=== PATIENT | female | born 1990 | race African-American/Black ===

== ENCOUNTER 2016-08-07 11:42 | Emergency (ER) | payer OTHER ==
[2016-08-07 12:01] VITALS: BP 137/63; PULSE 65; TEMP 98.7; BMI 30.7
[2016-08-07] MEDS ORDERED: ONDANSETRON 4 MG/2 ML VIAL ONE (12:04)
[2016-08-07] MEDS ORDERED: KETOROLAC TROMETHAMINE 60 MG/2 ML VIAL IVPUSH ONE (12:34)
[2016-08-07] MEDS ORDERED: KETOROLAC TROMETHAMINE 60 MG/2 ML VIAL ONE (12:36)
[2016-08-07 12:40] LABS: BASOPHIL 0.2 % (0-2.0); MCH 16.6 pg (25.7-33.7); MCHC 30.5 g/dl (32.0-36.0); MEAN CELL VOLUME 54.3 fl (80-96); MEAN PLT VOLUME 9.7 fl (7.5-11.1); NEUTROPHILS 88.2 % (42.8-82.8); PLATELET COUNT 270 K/MM3 (134-434); RDW 20.8 % (11.6-15.6); WHITE BLOOD COUNT 11.2 K/mm3 (4.0-10.0)
--- NOTE | 2016-08-07 12:45 | PDOC ---
History of Present Illness - General Chief Complaint: Pain Stated Complaint: ABD PAIN Time Seen by Provider: 08/07/16 11:55 History Source: Patient Exam Limitations: No Limitations - History of Present Illness Travel History: No Initial Comments: 08/07/16 12:45 By ambulance to the emergency department writhing and very dynamic with her complaints of abdominal pain. Has 4 family members with her with concerns about her appearance and her pain. States has multiple year history of abdominal pain related to fibroids. States every month before her menstrual cycle she suffers from lower abdominal cramping, suprapubic cramping similar to this however today 's episode was much worse which rendered her unable to attend [employer]. When family returned home and found her in this discomfort and called ambulance for transport to emergency department Last evaluation in measurement stated she had fibroids the size of 14 week . Has 2 Clinical Secretary doctors, attends school in [place] and that physician has seen her on multiple occasions recently. She missed her appointment last week Patient did not know exact measurement. States her mother suffered from fibroids and had surgical excisions of same. Denies fever, but states felt chills at home. Has had nauseousness and some episodes of emesis this morning, was uncertain as to related to pain. Patient denies vaginal drainage or bleeding, denies any problems with bowels, denies any pain or burning with urine, any recent UTI. Has not been sexually active for 2 months and denies thoughts of . 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 Timing/Duration: reports: getting worse Quality: reports: moderate, severe, sharpness, stabbing Abdominal Pain Onset Location: reports: suprapubic Pain Radiation: reports: no radiation Past History - Travel Traveled outside of the country in the last 30 days: No Close contact w/someone who was outside of country & ill: No - Past Medical History Allergies/Adverse Reactions: Allergies Allergy/AdvReac Type Severity Reaction Status Date / Time No Known Allergies Allergy Verified 08/07/16 11:47 Home Medications: Ambulatory Orders Ibuprofen [Motrin -] 800 mg PO TID #30 tablet 04/13/15 Oxycodone HCl/Acetaminophen [Percocet 5-325 mg Tablet -] 1 - 2 tab PO Q4H PRN # 10 tablet MDD 4 08/07/16 Oxycodone HCl/Acetaminophen [Percocet 5-325 mg Tablet -] 1 - 2 tab PO Q4H PRN # 20 tablet MDD 4 08/07/16 GI Disorders: Yes (fibroids) - Psycho/Social/Smoking Cessation Hx Anxiety: No Suicidal Ideation: No Smoking History: Never smoked Have you smoked in the past 12 months: No Information on smoking cessation initiated: No Hx Alcohol Use: No Drug/Substance Use Hx: No Substance Use Type: None Abd/GI Specific PMHX - Complaint Specific PMHX Diverticulitis: No Gall Bladder Disease: No GERD: No Review of Systems - Review of Systems Able to Perform ROS?: Yes Is the patient limited Irish proficient: Yes Constitutional: Yes: Symptoms Reported, See HPI, Chills, Fever, Loss of Appetite , Malaise HEENTM: Yes: See HPI. No: Symptoms Reported Respiratory: Yes: See HPI. No: Symptoms reported, Cough ABD/GI: Yes: Symptoms Reported, Abdominal cramping (pelvic ) : Yes: See HPI, Other (currently menstrration). No: Symptoms Reported, Burning, Dysuria, Discharge Musculoskeletal: No: Symptoms Reported Integumentary: No: Symptoms Reported Neurological: Yes: See HPI. No: Symptoms reported Hematologic/Lymphatic: No: Symptoms Reported All Other Systems: Reviewed and Negative *Physical Exam - Vital Signs Last Vital Signs Temp Pulse Resp BP Pulse Ox 98.7 F 65 18 137/63 100 08/07/16 11:45 08/07/16 11:45 08/07/16 11:45 08/07/16 11:45 08/07/16 11:45 - Physical Exam General Appearance: Yes: Nourished ( Morbidly obese), Appropriately Dressed, Apparent Distress, Moderate Distress, Severe Distress (shaking legs, and moving) HEENT: positive: Normal ENT Inspection, TMs Normal, Pharynx Normal Neck: positive: Supple. negative: Tender, Lymphadenopathy (R), Lymphadenopathy (L) Respiratory/Chest: positive: Lungs Clear Gastrointestinal/Abdominal: positive: Soft (no rebound, tenderness, hepatosplenomegaly, and no masses palpated to deep palpation.), Decreased BS, Tenderness (suprapubic tenderness). negative: Tender, Pulsatile Mass, Guarding , Rebound Extremity: positive: Normal Capillary Refill, Normal Range of Motion Integumentary: positive: Dry, Warm, Pale Neurologic: positive: correctional lieutenant II-XII NML intact, Fully Oriented, Alert, Normal Mood/ Affect (patient is very dramatic, hyperventilating intermittently with exam, moving frequently and wiggling legs with exam,), Normal Response, Motor Strength 07/15 ED Treatment Course - LABORATORY CBC & Chemistry Diagram: 08/07/16 12:29 08/07/16 12:29 Progress Note - Progress Note Progress Note: Urgent with known fibroids here with severe abdominal pain, states is worse than her regular. Will obtain labs, urinalysis, and obtain ultrasound to evaluate fibroid Medical Decision Making - Medical Decision Making 08/07/16 14:56 Return from ultrasound, is resting more quietly although states pain has not completely resolved but is much improved after morphine administration. He is receiving IV fluid, discussed results of ultrasound that showed fibroids however not much change from one year ago. No obvious pathology or other free fluid in abdomen. Discussed need for follow-up *DC/Admit/Observation/Transfer Diagnosis at time of Disposition: Fibroids Qualifiers: Uterine leiomyoma location: unspecified location Qualified Code(s): D25.9 - Leiomyoma of uterus, unspecified Anemia Qualifiers: Anemia type: iron deficiency Iron deficiency anemia type: unspecified iron deficiency Qualified Code(s): D50.9 - Iron deficiency anemia, unspecified - Discharge Dispostion Disposition: HOME Condition at time of disposition: Stable Admit: No - Prescriptions Prescriptions: Oxycodone HCl/Acetaminophen [Percocet 5-325 mg Tablet -] 1 - 2 tab PO Q4H PRN # 20 tablet MDD 4 PRN Reason: Pain Oxycodone HCl/Acetaminophen [Percocet 5-325 mg Tablet -] 1 - 2 tab PO Q4H PRN # 10 tablet MDD 4 PRN Reason: Pain - Referrals Referrals: Pauly Louis MD [Primary Care Provider] - - Patient Instructions Printed Discharge Instructions: DI for Uterine Fibroids Additional Instructions: Rest, drink lots of fluids: Teas, water, soups Abida indigo, carbonated beverages for the bubbles May try peppermint teas Avoid heavy , spicy or fatty foods until symptoms have resolved Avoid contact with others until fevers and symptoms resolved Lots of handwashing and good hygiene Continue [id number] medications for symptomatic relief Tylenol or Motrin for fever and pain Percocet for severe pain, one or 2 tablets every 6 hours as needed, remembering will make dizzy and sleepy Followup with private physician/ SOAP DRIER TENDER doctor in one to 2 days , to discuss worsening pain and fibroid problem. May consider hematology and gastroenterology evaluation to reveal chronic anemia Return to emergency department for worsened symptoms, fevers, dehydration - Post Discharge Activity Work/School Note: Back to School
[2016-08-07 13:04] LABS: ANISOCYTOSIS 2+; HYPOCHROMIA 1+; MICROCYTOSIS 2+; PLATELET ESTIMATE ADEQUATE (NORMAL); POLYCHROMASIA FEW
[2016-08-07 13:05] LABS: TARGET CELLS FEW
[2016-08-07 13:06] LABS: ALBUMIN 3.8 g/dl (3.4-5.0); ANION GAP 12 (8-16); BILIRUBIN,TOTAL 0.4 mg/dL (0.2-1.0); CALCIUM 9.2 mg/dL (8.5-10.1); CO2 20 mmol/L (21-32); COCKROFT - GAULT 143.7095; CREATININE 0.8 mg/dL (0.55-1.02); GLUCOSE,RANDOM 91 mg/dL (74-106); SGOT/AST 20 U/L (15-37); SGPT/ALT 16 U/L (12-78); TOT PROT 7.8 g/dl (6.4-8.2)
[2016-08-07 13:06] LABS: URINE APPEARANCE CLEAR; URINE BILIRUBIN NEGATIVE (NEGATIVE); URINE COLOR STRAW; URINE GLUCOSE (UA) NEGATIVE (NEGATIVE); URINE KETONE 1+ (NEGATIVE); URINE LEUK ESTERASE NEGATIVE (NEGATIVE); URINE NITRITE NEGATIVE (NEGATIVE); URINE PROTEIN NEGATIVE (NEGATIVE); URINE UROBILINOGEN NEGATIVE E.U./dl (0.2-1.0)
[2016-08-07 13:08] LABS: ALK PHOS 40 U/L (45-117)
[2016-08-07] MEDS ORDERED: morphine CARPU-JECT 4 MG/1 ML DISP.SYRIN ONE (13:20)
[2016-08-07] MEDS ORDERED: morphine CARPU-JECT 4 MG/1 ML DISP.SYRIN IVPUSH ONE (13:23)
[2016-08-07 13:40] LABS: URINE BLOOD 1+ (NEGATIVE); URINE MUCUS RARE; URINE RBC <1 /hpf (0-3); URINE WBC 1 /hpf (3-5)
== END 2016-08-07 15:34 | disposition home or self-care (01) ==
LOC: JER 11:42
PROC: 3E033NZ Introduction of Analgesics, Hypnotics, Sedatives into Peripheral Vein, Percutaneous Approach (ICD-10-PCS; principal; 2016-08-07)
PROC: 3E0333Z Introduction of Anti-inflammatory into Peripheral Vein, Percutaneous Approach (ICD-10-PCS; 2016-08-07)
DX: D25.9 Leiomyoma of uterus, unspecified (principal); D50.8 Other iron deficiency anemias
CPT/HCPCS: 36415; 76856-TC; 80053; 81003; 81015; 84702; 84703; 85025; 87086; 96374; 96375; 99283-25

== ENCOUNTER 2017-06-05 20:22 | Emergency (ER) | payer SELFPAY ==
--- NOTE | 2017-06-05 20:48 | PDOC ---
Rapid Medical Evaluation Time Seen by Provider: 06/05/17 20:45 Medical Evaluation: Allergies Allergy/AdvReac Type Severity Reaction Status Date / Time No Known Allergies Allergy Verified 08/07/16 11:47 I have performed a brief in-person evaluation of this patient. The patient presents with a chief complaint of: left lower abdominal pain x 5 days. hx of fibroids. No vaginal bleeding. Pertinent physical exam findings: I have ordered the following: UA/culture/hcg, labs The patient will proceed to the ED for further evaluation.
[2017-06-05 20:50] VITALS: BP 143/86; PULSE 72; TEMP 98.5; BMI 30.7
== END 2017-06-05 23:14 | disposition left against medical advice (07) ==
LOC: JER 20:22
DX: Z53.21 Procedure and treatment not carried out due to patient leaving prior to being seen by health care provider (principal)
CPT/HCPCS: 99281-25

== ENCOUNTER 2017-06-12 17:56 | Emergency (ER) | payer SELFPAY ==
[2017-06-12 18:17] VITALS: BP 124/73; PULSE 94; TEMP 98.7; BMI 30.7
--- NOTE | 2017-06-12 18:18 | PDOC ---
Rapid Medical Evaluation Chief Complaint: Pain, Acute Time Seen by Provider: 06/12/17 18:16 Medical Evaluation: Allergies Allergy/AdvReac Type Severity Reaction Status Date / Time No Known Allergies Allergy Verified 06/12/17 18:14 06/12/17 18:16 The patient presents with a chief complaint of: pelvic pain I have performed a brief in-person evaluation of this patient. Pertinent physical exam findings: vss, stable I have ordered the following: labs, The patient will proceed to the ED for further evaluation.
--- NOTE | 2017-06-12 19:24 | PDOC ---
History of Present Illness - General Chief Complaint: Pain, Acute Stated Complaint: ABDOMINAL PAIN Time Seen by Provider: 06/12/17 18:16 - History of Present Illness Initial Comments: 26 year old female with history of fibroids presenting with pelvic pain, nausea , and vomiting that she states is very similar to her fibroid pain presentations. Her LMP was two days prior to presentation. She usually has worsening pain on the onset of her menstrual cycle but it resolves after her menses is complete. Despite the fact that she finished her menses two days prior , the pain has not remitted. She has been using 4-5 Tylenol with codeine daily for the past week without much relief. She had a consultation for fibroid removal one month prior and is in the process of scheduling it. She has also had a few episodes of NBNB vomiting daily for the pat few days. Denies fevers, chills, diarrhea, lightheadedness, chest pain, syncope, or other symptoms. 06/12/17 20:33 Past History - Past Medical History Allergies/Adverse Reactions: Allergies Allergy/AdvReac Type Severity Reaction Status Date / Time No Known Allergies Allergy Verified 06/12/17 18:14 Home Medications: Ambulatory Orders Ibuprofen [Motrin -] 800 mg PO TID #30 tablet 04/13/15 Oxycodone HCl/Acetaminophen [Percocet 5-325 mg Tablet -] 1 - 2 tab PO Q4H PRN # 10 tablet MDD 4 08/07/16 Oxycodone HCl/Acetaminophen [Percocet 5-325 mg Tablet -] 1 - 2 tab PO Q4H PRN # 20 tablet MDD 4 08/07/16 COPD: No GI Disorders: Yes (fibroids) - Immunization History Immunization Up to Date: Yes - Suicide/Smoking/Psychosocial Hx Smoking History: Never smoked Have you smoked in the past 12 months: No Hx Alcohol Use: No Drug/Substance Use Hx: No Substance Use Type: None Review of Systems - Review of Systems Constitutional: No: Chills, Diaphoresis, Fever HEENTM: No: Eye Pain, Recent change in vision Respiratory: No: Cough, Orthopnea, Shortness of Breath Cardiac (ROS): No: Chest Pain, Lightheadedness, Palpitations ABD/GI: Yes: Nausea, Poor Appetite, Vomiting. No: Diarrhea : No: Burning, Dysuria, Discharge, Hematuria Musculoskeletal: No: Back Pain, Joint Pain Integumentary: No: Bruising, Erythema, Flushing, Lesions Neurological: No: Headache, Numbness, Paresthesia *Physical Exam - Vital Signs Last Vital Signs Temp Pulse Resp BP Pulse Ox 98.7 F 94 H 18 124/73 99 06/12/17 18:14 06/12/17 18:14 06/12/17 18:14 06/12/17 18:14 06/12/17 18:14 - Physical Exam General Appearance: Yes: Nourished, Appropriately Dressed. No: Apparent Distress HEENT: positive: EOMI, DEBBY, Normal ENT Inspection, Normal Voice Neck: positive: Trachea midline, Normal Thyroid, Supple. negative: Tender, Rigid Respiratory/Chest: positive: Lungs Clear, Normal Breath Sounds. negative: Chest Tender, Respiratory Distress, Accessory Muscle Use Cardiovascular: positive: Regular Rhythm, Regular Rate Gastrointestinal/Abdominal: positive: Normal Bowel Sounds, Tender (Suprapubic tenderness), Flat, Soft Musculoskeletal: positive: Normal Inspection. negative: Muscle Spasm Extremity: positive: Normal Capillary Refill, Normal Inspection, Normal Range of Motion. negative: Tender Integumentary: positive: Normal Color, Warm. negative: Dry Neurologic: positive: Fully Oriented, Alert, Motor Strength 5/5 ED Treatment Course - LABORATORY CBC & Chemistry Diagram: 06/12/17 19:15 06/12/17 19:15 Medical Decision Making - Medical Decision Making TVUS demonstrating slightly enlarged leimyoma without any other concerning signs. Patient's pain better with IV pain medication and she is OK with XOfran + percocet subscription and [facility]. 06/12/17 22:25 *DC/Admit/Observation/Transfer Diagnosis at time of Disposition: Leiomyoma - Discharge Dispostion Disposition: HOME Condition at time of disposition: Improved Admit: No - Referrals Referrals: Kym Louis MD [Primary Care Provider] - [facility] [Provider Group] - Patient Instructions Printed Discharge Instructions: DI for Uterine Fibroids Additional Instructions: Your fibroids are a little bit larger than before. Please follow up as soon as possible to schedule a [facility]. Please use the percocet and zofran for your pain and nausea/ vomiting as needed. Please return to the ED for new or worsening symptoms. - Post Discharge Activity
[2017-06-12 19:26] LABS: BASO % 0.3 % (0-2.0); EOS % 0.7 % (0-4.5); HEMATOCRIT 26.1 % (32.4-45.2); HEMOGLOBIN 7.7 GM/dL (10.7-15.3); MCHC 29.3 g/dl (32.0-36.0); MEAN CELL VOLUME 50.7 fl (80-96); MEAN PLT VOLUME 8.9 fl (7.5-11.1); PLATELET COUNT 281 K/MM3 (134-434); RBC 5.16 M/mm3 (3.60-5.2); WHITE BLOOD COUNT 9.4 K/mm3 (4.0-10.0)
[2017-06-12 19:31] LABS: URINE APPEARANCE SLCLOUDY; URINE BILIRUBIN NEGATIVE (<2.0 mg/dL); URINE BLOOD NEGATIVE (NEGATIVE); URINE COLOR AMBER; URINE GLUCOSE (UA) NEGATIVE (NEGATIVE); URINE KETONE 2+ (NEGATIVE); URINE LEUK ESTERASE NEGATIVE (NEGATIVE); URINE NITRITE NEGATIVE (NEGATIVE); URINE UROBILINOGEN 4.0 E.U/dl mg/dL (0.2-1.0)
[2017-06-12 19:35] LABS: URINE PROTEIN 1+ (NEGATIVE)
[2017-06-12 19:36] LABS: HCG,QUALITATIVE URINE NEGATIVE
[2017-06-12 19:38] LABS: EPI CELLS RARE /HPF (FEW); URINE BACTERIA FEW /hpf (NONE SEEN); URINE MUCUS MANY
[2017-06-12 19:44] LABS: MCH 14.8 pg (25.7-33.7)
[2017-06-12 19:45] LABS: ADD RBC MORPHOLOGY YES
[2017-06-12 19:56] LABS: ANISOCYTOSIS 3+; PLATELET ESTIMATE ADEQUATE; TEAR DROP CELLS 1+
[2017-06-12 20:00] LABS: ALBUMIN 3.1 g/dl (3.4-5.0); ANION GAP 7 (8-16); BLOOD UREA NITROGEN 6 mg/dL (7-18); CHLORIDE 97 mmol/L (98-107); CO2 28 mmol/L (21-32); GLUCOSE,RANDOM 98 mg/dL (74-106); POTASSIUM 3.5 mmol/L (3.5-5.1); SODIUM 132 mmol/L (136-145)
[2017-06-12] MEDS ORDERED: traMADol HCL 50 MG TABLET PO ONE (20:02)
[2017-06-12] MEDS ORDERED: ONDANSETRON *ODT* 4 MG TABLET SL ONE (20:02)
[2017-06-12 20:03] LABS: ALK PHOS 63 U/L (45-117); BILIRUBIN,TOTAL 0.3 mg/dL (0.2-1.0); CREATININE 0.7 mg/dL (0.55-1.02); SGOT/AST 17 U/L (15-37); SGPT/ALT 14 U/L (12-78)
[2017-06-12] MEDS ORDERED: traMADol HCL 50 MG TABLET ONE (20:04)
--- NOTE | 2017-06-12 20:13 | PDOC ---
Attending Attestation - Resident Resident Name: Tiana Singleton - ED Attending Attestation I have performed the following: I have examined & evaluated the patient, The case was reviewed & discussed with the resident, I agree w/resident's findings & plan, Exceptions are as noted - HPI HPI: 06/12/17 20:07 26-year-old female with past medical history of fibroids presents with acute on chronic pain. The patient is under evaluation by her hotel supplies salesperson and electrical mechanic for fibroid removal. Patient typically reports that around her periods, she typically has an exacerbation of her fibroid pain. Denies fevers or chills but felt nauseous with the pain. Denies diarrhea. Stated that she just finished her menstrual cycle but the pain is persistent. She reports that this is her usual acute on chronic pain. - Physicial Exam PE: 06/12/17 20:11 GENERAL: Awake, alert, and fully oriented, in no acute distress. HEAD: No signs of trauma EYES: PERRLA, EOMI, sclera anicteric, conjunctiva clear ENT: Auricles normal inspection, hearing grossly normal, nares patent NECK: Normal ROM, supple, ABDOMEN: Soft. TTP suprapubic. No guarding, no rebound. No masses EXTREMITIES: Normal range of motion, no edema. No clubbing or cyanosis. No cords, erythema, or tenderness NEUROLOGICAL: Cranial nerves II through XII grossly intact. Normal speech, normal gait SKIN: Warm, Dry, normal turgor, no rashes or lesions noted. - Medical Decision Making 06/12/17 20:11 Vital Signs Temp Pulse Resp BP Pulse Ox 98.7 F 94 H 18 124/73 99 06/12/17 18:14 06/12/17 18:14 06/12/17 18:14 06/12/17 18:14 06/12/17 18:14 I suspect this is likely pain secondary to her fibroids. We'll check labs, urinalysis and an ultrasound. If workup is unremarkable, and the pain is improved, patient discharged follow-up with her doctors. 06/12/17 22:21 CBC, BMP 06/12/17 19:15 06/12/17 19:15 CMP Sodium 132 mmol/L (136-145) L 06/12/17 19:15 Potassium 3.5 mmol/L (3.5-5.1) 06/12/17 19:15 Chloride 97 mmol/L (98-107) L 06/12/17 19:15 Carbon Dioxide 28 mmol/L (21-32) 06/12/17 19:15 Anion Gap 7 (8-16) L 06/12/17 19:15 BUN 6 mg/dL (7-18) L 06/12/17 19:15 Creatinine 0.7 mg/dL (0.55-1.02) 06/12/17 19:15 Creat Clearance w eGFR > 60 (>60) 06/12/17 19:15 Random Glucose 98 mg/dL (74-106) 06/12/17 19:15 Calcium 9.0 mg/dL (8.5-10.1) 06/12/17 19:15 Total Bilirubin 0.3 mg/dL (0.2-1.0) D 06/12/17 19:15 AST 17 U/L (15-37) 06/12/17 19:15 ALT 14 U/L (12-78) 06/12/17 19:15 Alkaline Phosphatase 63 U/L (45-117) 06/12/17 19:15 Total Protein 8.0 g/dl (6.4-8.2) 06/12/17 19:15 Albumin 3.1 g/dl (3.4-5.0) L 06/12/17 19:15 Will inform patient about her anemia. Ultrasound reviewed. Will have her take a copy of the ultrasound results of her fibroid to her convertible sofa bedspring tester
[2017-06-12] MEDS ORDERED: ONDANSETRON *ODT* 4 MG TABLET ONE (21:31)
[2017-06-12] MEDS ORDERED: ONDANSETRON 4 MG/2 ML VIAL IVPUSH ONE (21:38)
[2017-06-12] MEDS ORDERED: morphine CARPU-JECT 4 MG/1 ML DISP.SYRIN IVPUSH ONE (21:41)
[2017-06-12] MEDS ORDERED: morphine SULFATE 4 MG/ML VIAL ONE (21:44)
[2017-06-12] MEDS ORDERED: ONDANSETRON 4 MG/2 ML VIAL ONE (21:44)
== END 2017-06-12 22:30 | disposition home or self-care (01) ==
LOC: JER 17:56
PROC: 3E033NZ Introduction of Analgesics, Hypnotics, Sedatives into Peripheral Vein, Percutaneous Approach (ICD-10-PCS; principal; 2017-06-12)
DX: D25.9 Leiomyoma of uterus, unspecified (principal)
CPT/HCPCS: 36415; 76830-TC; 80053; 81003; 81015; 84703; 85025; 99282-25

== ENCOUNTER 2023-07-24 04:42 | Inpatient (IN) | payer OTHER ==
[2023-07-20 10:39] VITALS: BMI 30.7
[2023-07-24] MEDS ORDERED: ceFAZolin SODIUM 1 GM VIAL ONE (06:42)
[2023-07-24] MEDS ORDERED: PROPOFOL 20 ML ONE ×2 (07:31→10:14)
[2023-07-24] MEDS ORDERED: MIDAZOLAM HCL 2 MG/2 ML SINGLE DOSE VIAL ONE ×2 (07:32)
[2023-07-24] MEDS ORDERED: ROCURONIUM BROMIDE 50 MG/5 ML SYRINGE ONE ×2 (07:32→08:57)
[2023-07-24] MEDS ORDERED: FENTANYL CITRATE/PF 50 MCG/ML VIAL ONE ×4 (07:32→10:01)
[2023-07-24] MEDS ORDERED: SODIUM CHLORIDE 0.9% P/F 10 ML VIAL IJ ONE (07:41)
[2023-07-24] MEDS: ceFAZolin SODIUM 1 GM VIAL IVPB ONE (07:55)
[2023-07-24] MEDS ORDERED: DEXAMETHASONE SOD PHOSPHATE 4 MG/1 ML VIAL ONE (07:55)
[2023-07-24] MEDS ORDERED: ONDANSETRON 4 MG/2 ML VIAL ONE (07:55)
[2023-07-24] MEDS ORDERED: TRANEXAMIC ACID 1000 MG/10 ML VIAL ONE (09:50)
[2023-07-24] MEDS ORDERED: SUGAMMADEX SODIUM 200 MG/2 ML VIAL ONE (10:18)
[2023-07-24] MEDS ORDERED: ONDANSETRON 4 MG/2 ML VIAL IVPUSH PRN ×2 (10:48)
[2023-07-24] MEDS ORDERED: PROMETHAZINE HCL 25 MG/1 ML VIAL IVPB PRN ×2 (10:48)
[2023-07-24] MEDS ORDERED: DEXAMETHASONE SOD PHOSPHATE 4 MG/1 ML VIAL IVPUSH PRN (10:48)
[2023-07-24] MEDS ORDERED: HYDROmorphone *PCA* 10MG/50ML DISP.SYRIN ONE (10:59)
[2023-07-24] MEDS: HYDROmorphone *PCA* 10MG/50ML DISP.SYRIN PCA SCH (11:02)
[2023-07-24] MEDS ORDERED: BISACODYL 5 MG TABLET.DR (FP) PO PRN (11:04)
[2023-07-24] MEDS ORDERED: oxyCODONE HCL 5 MG TABLET PO PRN ×2 (11:04)
[2023-07-24] MEDS ORDERED: DOCUSATE SODIUM 100 MG CAPSULE (FP) PO PRN (11:04)
[2023-07-24] MEDS ORDERED: ZOLPIDEM TARTRATE 5 MG TABLET PO PRN (11:10)
[2023-07-24] MEDS: CEFAZOLIN SODIUM 2 GM in DEXTROSE 5%-WATER 100 ML IVPB ONE (12:08)
[2023-07-24] MEDS ORDERED: IBUPROFEN 800 MG/8 ML IJ IVPB ONE (12:29)
[2023-07-24] MEDS: IBUPROFEN 800 MG/8 ML IJ IVPB SCH (12:33)
[2023-07-24] MEDS: LACTATED RINGERS SOLUTION 1,000 ML IV SCH (12:45)
[2023-07-24] MEDS: CEFAZOLIN SODIUM 2 GM in DEXTROSE 5%-WATER 100 ML IVPB SCH (16:01)
[2023-07-24] MEDS: ACETAMINOPHEN 1000 MG/100 ML BAG IVPB SCH (16:01)
[2023-07-24 19:02] LABS: HEMATOCRIT 28.2 % (32.4-45.2); HEMOGLOBIN 9.2 GM/dL (10.7-15.3); MCHC 32.5 g/dl (32.0-36.0); MEAN CELL VOLUME 61.6 fl (80-96); MEAN PLT VOLUME 9.5 fl (7.5-11.1); PLATELET COUNT 169 10^3/uL (134-434); RBC 4.58 M/mm3 (3.60-5.2); RDW 27.8 % (11.6-15.6); WHITE BLOOD COUNT 12.3 K/mm3 (4.0-10.0)
[2023-07-24] MEDS: SIMETHICONE 80 MG TAB.CHEW (FP) PO PRN (19:17)
[2023-07-24 19:19] LABS: POTASSIUM 4.3 mmol/L (3.5-5.1)
[2023-07-24 19:21] LABS: CALCIUM 8.4 mg/dL (8.5-10.1)
[2023-07-24 19:22] LABS: BLOOD UREA NITROGEN 6.8 mg/dL (7-18)
[2023-07-24 19:25] LABS: CREATININE 0.6 mg/dL (0.55-1.3)
[2023-07-25 07:17] LABS: POTASSIUM 3.5 mmol/L (3.5-5.1)
[2023-07-25 07:22] LABS: CALCIUM 7.8 mg/dL (8.5-10.1)
[2023-07-25 07:23] LABS: BLOOD UREA NITROGEN 5.5 mg/dL (7-18)
[2023-07-25 07:24] LABS: HEMOGLOBIN 7.8 GM/dL (10.7-15.3); MCHC 32.7 g/dl (32.0-36.0); MEAN PLT VOLUME 10.3 fl (7.5-11.1); PLATELET COUNT 128 10^3/uL (134-434); RBC 3.93 M/mm3 (3.60-5.2); RDW 26.2 % (11.6-15.6)
[2023-07-25 07:26] LABS: CREATININE 0.6 mg/dL (0.55-1.3)
[2023-07-25 07:34] LABS: MCH 19.9 pg (25.7-33.7)
[2023-07-25] MEDS: ENOXAPARIN NA (PORCINE) 40 MG/0.4 ML DISP.SYRIN SQ SCH (09:31)
[2023-07-25 11:37] LABS: BASO % 0.2 % (0-2.0); EOS % 0.1 % (0-4.5); HEMATOCRIT 24.4 % (32.4-45.2); HEMOGLOBIN 8.1 GM/dL (10.7-15.3); LYMPH % 16.8 % (8-40); MCH 20.3 pg (25.7-33.7); MCHC 33.3 g/dl (32.0-36.0); MEAN CELL VOLUME 60.9 fl (80-96); MONO % 8.6 % (3.8-10.2); NEUT % 74.3 % (42.8-82.8); PLATELET COUNT 149 10^3/uL (134-434); RBC 4.01 M/mm3 (3.60-5.2); RDW 26.6 % (11.6-15.6); WHITE BLOOD COUNT 9.8 K/mm3 (4.0-10.0)
[2023-07-25 12:47] LABS: ANISOCYTOSIS 1+; MACROCYTOSIS 0
[2023-07-25] MEDS: oxyCODONE HCL 5 MG TABLET PO PRN (15:15)
[2023-07-25] MEDS ORDERED: ACETAMINOPHEN 500 MG TABLET (FP) PO PRN (16:00)
[2023-07-25] MEDS: FERROUS SO4 325 MG TABLET (FP) PO SCH (17:17)
[2023-07-26 08:26] LABS: BASO % 0.2 % (0-2.0); EOS % 0.1 % (0-4.5); HEMATOCRIT 21.7 % (32.4-45.2); HEMOGLOBIN 7.3 GM/dL (10.7-15.3); LYMPH % 16.5 % (8-40); MCH 20.4 pg (25.7-33.7); MCHC 33.5 g/dl (32.0-36.0); MEAN CELL VOLUME 60.9 fl (80-96); MEAN PLT VOLUME 9.2 fl (7.5-11.1); MONO % 8.3 % (3.8-10.2); NEUT % 74.9 % (42.8-82.8); PLATELET COUNT 141 10^3/uL (134-434); RBC 3.57 M/mm3 (3.60-5.2); RDW 27.8 % (11.6-15.6); WHITE BLOOD COUNT 10.1 K/mm3 (4.0-10.0)
[2023-07-26] MEDS: oxyCODONE HCL 5 MG TABLET PO PRN (08:38)
[2023-07-26] MEDS ORDERED: MAGNESIUM HYDROX 2400MG/30ML ORAL SUSPENSION 30 ML CUP PO PRN (09:10)
[2023-07-26] MEDS: ACETAMINOPHEN 500 MG TABLET (FP) PO SCH (09:29)
[2023-07-26] MEDS: MAGNESIUM HYDROX 2400MG/30ML ORAL SUSPENSION 30 ML CUP PO SCH (09:30)
[2023-07-26 13:24] VITALS: RESP 18
[2023-07-26 22:55] VITALS: TEMP 98.1
[2023-07-27 08:31] LABS: BASO % 0.3 % (0-2.0); EOS % 1.2 % (0-4.5); HEMATOCRIT 31.3 % (32.4-45.2); HEMOGLOBIN 10.6 GM/dL (10.7-15.3); MCH 22.3 pg (25.7-33.7); MCHC 33.7 g/dl (32.0-36.0); MEAN PLT VOLUME 9.2 fl (7.5-11.1); MONO % 6.9 % (3.8-10.2); NEUT % 75.6 % (42.8-82.8); PLATELET COUNT 184 10^3/uL (134-434); RBC 4.75 M/mm3 (3.60-5.2); RDW 30.4 % (11.6-15.6); WHITE BLOOD COUNT 8.8 K/mm3 (4.0-10.0)
[2023-07-27 09:08] LABS: PLATELET ESTIMATE ADEQUATE
[2023-07-27] MEDS: ONDANSETRON 4 MG/2 ML VIAL IVPUSH PRN (09:39)
[2023-07-27 12:58] VITALS: BP 132/72; PULSE 64
== END 2023-07-27 14:40 | disposition home or self-care (01) | DRG 743 ==
LOC: J2C 04:42 → J3W 13:18
PROVIDERS: ADMIT Obstetrics & Gynecology; ATTEND Obstetrics & Gynecology
PROC: 30233N1 Transfusion of Nonautologous Red Blood Cells into Peripheral Vein, Percutaneous Approach (ICD-10-PCS; 2023-07-24)
PROC: 30233L1 Transfusion of Nonautologous Fresh Plasma into Peripheral Vein, Percutaneous Approach (ICD-10-PCS; 2023-07-24)
PROC: 30233K1 Transfusion of Nonautologous Frozen Plasma into Peripheral Vein, Percutaneous Approach (ICD-10-PCS; 2023-07-24)
PROC: 0UB90ZZ Excision of Uterus, Open Approach (ICD-10-PCS; principal; 2023-07-24 08:06)
DX: D25.1 Intramural leiomyoma of uterus (principal); D25.0 Submucous leiomyoma of uterus; D25.2 Subserosal leiomyoma of uterus; D64.9 Anemia, unspecified
CPT/HCPCS: 36415; 36430; 80048; 81025; 85025; 85027; 86850; 86900; 86901; 86922; 88305-TC; 94760; J0131; P9017; P9038; P9058